=== PATIENT | female | born 1950 | race African-American/Black ===

== ENCOUNTER → 2017-10-11 | Outpatient (CLI) | payer MEDICARE, OTHER ==
--- NOTE | 2017-10-11 11:28 | RADIOLOGY REPORT (SQ) ---
EXAM DESCRIPTION: U/S RETROPERITON (RENAL/AORTA) COMPLETED DATE/TIME: 10/11/2017 10:54 am REASON FOR STUDY: ABN KIDNEY FUNCTION STUDIES (R94.4) R94.4 ABNORMAL RESULTS OF KIDNEY FUNCTION ANIA DIES COMPARISON: None. TECHNIQUE: Dynamic and static grayscale images acquired of the kidneys and bladder and recorded on P ACS. Additional selected color Doppler and spectral images recorded. LIMITATIONS: None. FINDINGS: RIGHT KIDNEY: Normal size, 13.1 cm. Mild cortical thinning. Normal echogenicity. No kari d masses ; several cysts are present. The largest measures 2 cm. No hydronephrosis. No calcificatio ns. LEFT KIDNEY: Normal size, 10.7 cm. Mild cortical thinning. Normal echogenicity. No solid masses; s everal cysts are present. The largest measures 1.7 cm. No hydronephrosis. No calcifications. BLADDER: No masses. Ureteral jets were visualized. OTHER FINDINGS: No other significant finding. IMPRESSION: There is mild cortical thinning bilaterally. Several cysts are seen on each kidney. TECHNICAL DOCUMENTATION: JOB ID: [id number]- All Rights Reserved
== END ==
LOC: RAD 09:30
PROVIDERS: ATTEND Internal Medicine
DX: R94.4 Abnormal results of kidney function studies (principal)
CPT/HCPCS: 76770

== ENCOUNTER → 2018-01-10 | Outpatient (CLI) | payer MEDICARE, OTHER ==
--- NOTE | 2018-01-10 10:25 | WOMENS IMAGING REPORT ---
EXAM DESCRIPTION: 3D SCREENING MAMMO BILAT COMPLETED DATE/TIME: 01/10/2018 8:10 am REASON FOR STUDY: SCREENING MAMMO Z12.31 ENCNTR SCREEN MAMMOGRAM FOR MALIGNANT NEOPLASM OF MARLA COMPARISON: [id number] TECHNIQUE: Standard craniocaudal and mediolateral oblique views of each breast recorded using digita l acquisition and breast tomosynthesis. LIMITATIONS: None. FINDINGS: No masses, calcifications or architectural distortion. No areas of suspicion. Read with the assistance of CAD. .[facility] - R2 Cenova Version 1.3 .[facility] Imaging - R2 Cenova Version 1.3 .[facility] Imaging - R2 Cenova Version 2.4 .[facility] - R2 Cenova Version 2.4 .[facility] - R2 Post Manager Version 9.2 IMPRESSION: NORMAL MAMMOGRAM. BIRADS 1. BREAST DENSITY: b. There are scattered areas of fibroglandular density. BIRAD: 1 NEGATIVE RECOMMENDATION: ROUTINE SCREENING COMMENT: The patient has been notified of the results by letter per SA requirements. Additional no tification policies are in place for contacting patient with suspicious or incomplete findings. Quality ID #225: The [employer] recommends an annual screening mammogram for women aged 40 years or over. This facility utilizes a reminder system to ensure that all patients receive reminder letters, and/or direct phone calls for appointments. This includes reminders for routine scr eening mammograms, diagnostic mammograms, or other Breast Imaging Interventions when appropriate. Th is patient will be placed in the appropriate reminder system. The [employer] (ACR) has developed recommendations for screening MRI of the breast s in certain patient populations, to be used in conjunction with mammography. Breast MRI surveillanc e may be appropriate for women with more than 20% lifetime risk of developing breast cancer as deter mined by genetic testing, significant family history of the disease, or history of mantle radiation f or Hodgkins Disease. ACR Practice Guidelines 2008. DBT Technology DBT is a type of tomographic mammography. With conventional mammography, overlapping breast tissue ma y make lesions difficult to detect, even with good compression. DBT uses an x-ray tube that rotates a round the breast, taking images at different angles. These images are then combined to create thin sl ices of the breast that the radiologist can view as a 3D reconstruction. The [employer] unit can perform full-field digital mammograms (2D imaging); or DBT (3D imaging); or both, in a combination mode that quickly performs both the mammogram and the tomosynthesis scan while the breast is still compressed. PQRS 6045F: Fluoroscopic imaging is not utilized for breast tomosynthesis. TECHNICAL DOCUMENTATION: FINDING NUMBER: (1) ASSESSMENT: (1) JOB ID: [id number] [employer]- All Rights Reserved
== END ==
LOC: WI 07:54
PROVIDERS: ATTEND Internal Medicine
DX: Z12.31 Encounter for screening mammogram for malignant neoplasm of breast (principal)
CPT/HCPCS: 77063; 77067

== ENCOUNTER 2018-09-10 13:14 | Observation (INO) | payer MEDICARE, OTHER ==
[2018-09-10] MEDS ORDERED: NORMAL SALINE 1000 ML 1,000 ML IV PRN ×2 (18:57→21:45)
[2018-09-10 20:32] LABS: CREATINE KINASE MB 0.71 ng/mL (<4.55)
[2018-09-10 20:40] LABS: TROPONIN I < 0.012 ng/mL
[2018-09-10 22:55] LABS: INTERNATIONAL RATION (INR) 0.99; PROTHROMBIN TIME 13.6 SEC (11.4-15.4)
[2018-09-10 22:56] LABS: PARTIAL THROMBOPLASTIN TIME 36.5 SEC (23.5-35.8)
[2018-09-10 23:11] LABS: ALANINE AMINOTRANSFERASE 21 U/L (9-52); ALBUMIN 3.6 g/dL (3.5-5.0); ALKALINE PHOSPHATASE 51 U/L (38-126); AMYLASE 80 U/L (30-110); ASPARTATE AMINO TRANSFERASE 12 U/L (14-36); BILIRUBIN,DIRECT 0.1 mg/dL (0.0-0.4); BILIRUBIN,TOTAL 0.3 mg/dL (0.2-1.3); LIPASE 159.3 U/L (23-300); PHOSPHORUS 3.3 mg/dL (2.5-4.5); TOTAL PROTEIN 6.3 g/dL (6.3-8.2)
[2018-09-10 23:33] LABS: TROPONIN I < 0.012 ng/mL
[2018-09-11 00:18] LABS: FREE T4 (FREE THYROXINE) 1.13 ng/dL (0.78-2.19)
[2018-09-11 00:31] LABS: THYROID STIMULATING HORMONE 0.87 uIU/mL (0.47-4.68)
[2018-09-11 01:10] LABS: APPEARANCE,URINE CLEAR; BILIRUBIN,URINE NEGATIVE (NEGATIVE); COLOR,URINE COLORLESS; GLUCOSE, URINE NEGATIVE (NEGATIVE); KETONES,URINE NEGATIVE (NEGATIVE); LEUKOCYTE ESTERASE,URINE SMALL (NEGATIVE); NITRITE,URINE NEGATIVE (NEGATIVE); PROTEIN,URINE NEGATIVE (NEGATIVE); URINE SPECIFIC GRAVITY 1.005; UROBILINOGEN,URINE NEGATIVE mg/dL (<2.0)
[2018-09-11 04:44] LABS: ABSOLUTE BASOPHILS # (AUTO) 0.1 10^3/uL (0.0-0.2); ABSOLUTE EOSINOPHILS # (AUTO) 0.4 10^3/uL (0.0-0.6); ABSOLUTE LYMPHOCYTES (AUTO) 2.4 10^3/uL (0.5-4.7); ABSOLUTE MONOCYTES (AUTO) 0.7 10^3/uL (0.1-1.4); ABSOLUTE NEUT (AUTO) 5.6 10^3/uL (1.7-8.2); BASOPHILS % (AUTO) 0.5 % (0-2); EOSINOPHILS % (AUTO) 4.7 % (0-6); HEMATOCRIT 30.3 % (36.0-47.0); HEMOGLOBIN 10.1 g/dL (12.0-15.5); MEAN CORPUSCULAR HEMOGLOBIN 29.4 pg (27.0-33.4); MEAN CORPUSCULAR HGB CONC 33.3 g/dL (32.0-36.0); MEAN CORPUSCULAR VOLUME 89 fl (80-97); PLATELET COUNT 347 10^3/uL (150-450); RED BLOOD COUNT 3.42 10^6/uL (3.72-5.28); SEGMENTED NEUTROPHILS % (AUTO) 60.8 % (42-78); TOTAL CELLS COUNTED % (AUTO) 100 %; WHITE BLOOD COUNT 9.3 10^3/uL (4.0-10.5)
[2018-09-11 05:05] LABS: ANION GAP 9 (5-19); BLOOD UREA NITROGEN 14 mg/dL (7-20); CALCIUM 10.4 mg/dL (8.4-10.2); CARBON DIOXIDE 24 mmol/L (22-30); CHLORIDE 107 mmol/L (98-107); CHOLESTEROL 109.71 mg/dL (0-200); CREATINE KINASE 44 U/L (30-135); GLUCOSE 88 mg/dL (75-110); POTASSIUM 3.7 mmol/L (3.6-5.0); SODIUM 139.7 mmol/L (137-145); TRIGLYCERIDES 73 mg/dL (<150)
[2018-09-11 05:16] LABS: CREATINE KINASE MB 0.46 ng/mL (<4.55); DIRECT LDL 35 mg/dL (<100)
[2018-09-11 05:21] LABS: TROPONIN I < 0.012 ng/mL
--- NOTE | 2018-09-11 07:59 | EKG REPORT ---
SEVERITY:- BORDERLINE ECG - SINUS RHYTHM BORDERLINE LEFT AXIS DEVIATION POOR R WAVE PROGRESSION ANTERIOR PRECORDIAL LEADS NO QT PROLONGATION : Confirmed by: Janes Schaefer MD 11-Sep-2018 07:58:17
[2018-09-11] MEDS ORDERED: ENOXAPARIN SODIUM INJ 40 MG/0.4 ML DISP.SYRIN SUBCUT SCH (10:00)
[2018-09-11 12:31] LABS: CREATINE KINASE MB 0.46 ng/mL (<4.55)
[2018-09-11 12:35] LABS: TROPONIN I < 0.012 ng/mL
--- NOTE | 2018-09-11 13:28 | RADIOLOGY REPORT (SQ) ---
EXAM DESCRIPTION: CAROTID DOPPLER COMPLETED DATE/TIME: 09/11/2018 12:05 pm REASON FOR STUDY: syncope COMPARISON: 01/28/2016 TECHNIQUE: Grayscale ultrasound, Doppler velocity and spectra, and color Doppler images acquired of the extra-cranial carotid and vertebral arteries. Images stored on PACS. LIMITATIONS: None. FINDINGS: RIGHT CAROTID CCA Velocities: Within normal limits. ICA Velocities Peak systolic 0.94 m/s. End diastolic 0.30 m/s. Proximal ICA/CCA peak systolic ratio 1.5. Spectra normal. No significant plaque. LEFT CAROTID CCA Velocities: Within normal limits. ICA Velocities Peak systolic 1.07 m/s. End diastolic 0.37 m/s. Proximal ICA/CCA peak systolic ratio 1.8. Spectra normal. No significant plaque. VERTEBRAL ARTERIES: Antegrade flow. Normal waveforms. SUBCLAVIAN ARTERIES: No finding. OTHER: No other significant finding. IMPRESSION: NO HEMODYNAMICALLY SIGNIFICANT STENOSIS. COMMENT: Quality ID #[id number]: Velocity criteria are extrapolated from the diameter data as defined by t he Society of Radiologists in Ultrasound Consensus Conference. Radiology 2003: 229; 340-346. TECHNICAL DOCUMENTATION: JOB ID: [id number] [employer]- All Rights Reserved Reading location - IP/workstation name: [email or web address]
[2018-09-11 16:31] VITALS: BP 141/58
--- NOTE | 2018-09-11 18:39 | XCELERA REPORT ---
[address] [address] Transthoracic Echocardiogram Report Name: DEV DAVIES Age: 67 yrs Gender: Female : 1950 Patient Status: Inpatient Patient Location: [address] [place], [place] [address] Study Date: 09/11/2018 10:26 AM Height: 65 in Weight: 208 lb BSA: 2.0 m2 Procedure: A two-dimensional transthoracic echocardiogram with color flow and Doppler was performed. Study Quality: Good. Reason For Study: syncope History: SYNCOPE. Ordering Physician: JANELLE MACK Performed By: Barbara Monson Interpretation Summary The left ventricle is normal in size. There is normal left ventricular wall thickness. LV EF is > than 65% Left ventricular systolic function is normal. Doppler measurements suggest normal left ventricular diastolic function The left ventricular wall motion is normal. There is no thrombus. There is no ventricular septal defect visualized. The right ventricle is normal in size and function. The right ventricular systolic function is normal. The right atrium is normal. The left atrial size is normal. The interatrial septum is intact with no evidence for an atrial septal defect. There is mild mitral annular calcification. There is no evidence of mitral valve prolapse. There is no vegetation seen on the mitral valve. There is no mitral valve stenosis. There is no mitral regurgitation noted. There is no aortic valvular vegetation. There is no aortic valve stenosis There is no LVOT obstruction. No aortic regurgitation is present. There is no tricuspid stenosis. There is a trace amount of tricuspid regurgitation Unable to calculate RVSP due to lack of TR jet. There is no pulmonic valvular stenosis. There is no pulmonic valvular regurgitation. The aortic root is normal size. The inferior vena cava appeared normal and decreased > 50% with respiration (RAP 5-10 mmHg) There is no pericardial effusion. MMode/2D Measurements & Calculations RVDd: 2.9 cm LVIDd: 5.2 cm FS: 40.8 % Ao root diam: 2.7 cm IVSd: 0.90 cm LVIDs: 3.1 cm EDV(Teich): 131.0 ml Ao root area: 5.8 cm2 LVPWd: 0.90 cm ESV(Teich): 37.8 ml LA dimension: 3.6 cm EF(Teich): 71.1 % Doppler Measurements & Calculations MV E max blanco: MV P1/2t max blanco: Ao V2 max: LV V1 max P.4 cm/sec 85.9 cm/sec 166.8 cm/sec 4.4 mmHg MV A max blanco: MV P1/2t: 56.7 msec Ao max PG: LV V1 max: 80.0 cm/sec MVA(P1/2t): 3.9 cm2 11.1 mmHg 104.6 cm/sec MV E/A: 1.1 MV dec slope: 443.9 cm/sec2 MV dec time: 0.20 sec PA V2 max: MV P1/2t-pr_phl: 92.3 cm/sec 56.7 msec PA max P.4 mmHg Left Ventricle The left ventricle is normal in size. There is normal left ventricular wall thickness. LV EF is > than 65%. Left ventricular systolic function is normal. Doppler measurements suggest normal left ventricular diastolic function. The left ventricular wall motion is normal. There is no thrombus. There is no ventricular septal defect visualized. Right Ventricle The right ventricle is normal in size and function. The right ventricular systolic function is normal. Atria The right atrium is normal. The left atrial size is normal. The interatrial septum is intact with no evidence for an atrial septal defect. Mitral Valve There is mild mitral annular calcification. There is no evidence of mitral valve prolapse. There is no vegetation seen on the mitral valve. There is no mitral valve stenosis. There is no mitral regurgitation noted. Aortic Valve There is no aortic valvular vegetation. There is no aortic valve stenosis. There is no LVOT obstruction. No aortic regurgitation is present. Tricuspid Valve There is no tricuspid stenosis. There is a trace amount of tricuspid regurgitation. Unable to calculate RVSP due to lack of TR jet. Pulmonic Valve There is no pulmonic valvular stenosis. There is no pulmonic valvular regurgitation. Great Vessels The aortic root is normal size. The inferior vena cava appeared normal and decreased > 50% with respiration (RAP 5-10 mmHg). Effusions There is no pericardial effusion. : JANELLE MACK > Cecy Koch
[2018-09-11] MEDS ORDERED: (PENDING PHARMACY ID) (Liraglutide [Victoza 2-Pak] 1.8 MG) SQ SCH (19:00)
[2018-09-11] MEDS ORDERED: (PENDING PHARMACY ID) (Valsartan/Hydrochlorothiazide [Valsartan-Hctz 160-25 Mg Tab] 1 EACH PO SCH (19:00)
[2018-09-11] MEDS ORDERED: (PENDING PHARMACY ID) (Rosuvastatin Calcium [Crestor 20 Mg Tablet] 20 MG) PO SCH (19:00)
[2018-09-11] MEDS ORDERED: SITAGLIPTIN PHOSPHATE 50 MG TABLET PO SCH (19:30)
[2018-09-11] MEDS ORDERED: MAGNESIUM OXIDE 400 MG TABLET PO ONE (19:30)
[2018-09-11] MEDS ORDERED: HYDROCHLOROTHIAZIDE 25 MG TABLET PO SCH (19:30)
[2018-09-11] MEDS ORDERED: LISINOPRIL 10 MG TABLET PO SCH (19:30)
[2018-09-11] MEDS ORDERED: PIOGLITAZONE HCL 30 MG TABLET PO SCH (19:30)
[2018-09-11] MEDS ORDERED: VALSARTAN 160 MG TABLET PO SCH (19:30)
--- NOTE | 2018-09-11 20:08 | PDOC H&P ---
History of Present Illness Admission Date/PCP: 09/10/18 13:14 ASHWIN NAILS MD History of Present Illness: DEV DAVIES is a 67 year old female.She apparently fell in driveway and sustained injury to the left face, she denied any antecedent chest pain, dizziness, palpitation but she does not remember exactly how she fell because it was trauma, she was transferred by the ambulance to the [facility] trauma center. She was evaluated, CT head was done, it demonstrated no intracranial hemorrhage, C-spine was done there is no fracture or misalignment of the cervical spine there are mild degenerative changes of the spine most noticeable at C5-C6, C6-C7. There is a 2 cm hypoattenuation focus in the left thyroid gland., There was incidental finding of a 2 cm left thyroid gland nodule, she was transferred out from the [facility] to [facility] for further management. I saw her on the floor, she has no symptom, a 2D echo was done, the left ventricle was normal size, the ejection fraction was more than 65% there was no significant valvular heart disease. The carotid Doppler was normal. Past Medical History Cardiac Medical History: Reports: Hypertension Endocrine Medical History: Reports: Diabetes Mellitus Type 2 Past Surgical History Past Surgical History: Reports: Hysterectomy Social History Smoking Status: Never Smoker Frequency of Alcohol Use: None Hx Recreational Drug Use: No Drugs: None Hx Prescription Drug Abuse: No Family History Family History: Reviewed & Not Pertinent Parental Family History Reviewed: Yes Children Family History Reviewed: Yes Sibling(s) Family History Reviewed.: Yes Medication/Allergy Home Medications: Liraglutide [Victoza 2-Andrez] 1.8 mg SQ DAILY 09/10/18 Lisinopril [Prinivil 40 mg Tablet] 40 mg PO DAILY 09/10/18 Metformin HCl [Glucophage 500 mg Tablet] 500 mg PO QID 09/10/18 Pioglitazone HCl [Actos] 30 mg PO DAILY 09/10/18 Rosuvastatin Calcium [Crestor 20 mg Tablet] 20 mg PO DAILY 09/10/18 Sitagliptin Phosphate [Januvia] 100 mg PO DAILY 09/10/18 Valsartan/Hydrochlorothiazide [Valsartan-Hctz 160-25 mg Tab] 1 each PO DAILY Allergies/Adverse Reactions: No Known Allergies Allergy (Unverified 01/28/16 00:03) Review of Systems Constitutional: ABSENT: chills, fever(s), headache(s), weight gain, weight loss Eyes: ABSENT: visual disturbances Ears: ABSENT: hearing changes Cardiovascular: ABSENT: chest pain, dyspnea on exertion, edema, orthropnea, palpitations Respiratory: ABSENT: cough, hemoptysis Gastrointestinal: ABSENT: abdominal pain, constipation, diarrhea, hematemesis, hematochezia, nausea, vomiting Genitourinary: ABSENT: dysuria, hematuria Musculoskeletal: ABSENT: joint swelling Integumentary: ABSENT: rash, wounds Neurological: PRESENT: syncope Psychiatric: ABSENT: anxiety, depression, homidical ideation, suicidal ideation Endocrine: ABSENT: cold intolerance, heat intolerance, menstrual abnormalities, polydipsia, polyuria Hematologic/Lymphatic: ABSENT: easy bleeding, easy bruising, lymphadenopathy Physical Exam Vital Signs: Temp Pulse Resp BP Pulse Ox 98.3 F 84 14 141/58 H 97 09/11/18 19:00 09/11/18 19:00 09/11/18 19:00 09/11/18 19:00 09/11/18 19:00 Intake & Output 09/10/18 09/11/18 09/12/18 06:59 06:59 06:59 Intake Total 200 Balance 200 Weight 99.9 kg General appearance: PRESENT: no acute distress Head exam: PRESENT: atraumatic, normocephalic Eye exam: PRESENT: conjunctiva pink, EOMI, PERRLA Ear exam: PRESENT: normal external ear exam Mouth exam: PRESENT: moist, tongue midline Neck exam: PRESENT: full ROM Respiratory exam: PRESENT: clear to auscultation lilian Cardiovascular exam: PRESENT: RRR, +S1, +S2 Pulses: PRESENT: normal dorsalis pedis pul, +2 pedal pulses bilateral Vascular exam: PRESENT: normal capillary refill GI/Abdominal exam: PRESENT: normal bowel sounds, soft Rectal exam: PRESENT: deferred Neurological exam: PRESENT: alert, CN II-XII grossly intact Psychiatric exam: PRESENT: appropriate affect, normal mood Skin exam: PRESENT: dry, intact, warm Results Laboratory Results: 09/11/18 04:25 09/11/18 04:25 09/10/18 09/10/18 09/11/18 22:41 22:41 00:45 WBC RBC Hgb Hct MCV MCH MCHC RDW Plt Count Seg Neutrophils % Lymphocytes % Monocytes % Eosinophils % Basophils % Absolute Neutrophils Absolute Lymphocytes Absolute Monocytes Absolute Eosinophils Absolute Basophils Sodium Potassium Chloride Carbon Dioxide Anion Gap BUN Creatinine Est GFR ( Amer) Est GFR (Non-Af Amer) Glucose Calcium Phosphorus 3.3 Magnesium Total Bilirubin 0.3 AST 12 L ALT 21 Alkaline Phosphatase 51 Total Protein 6.3 Albumin 3.6 Triglycerides Cholesterol LDL Cholesterol Direct VLDL Cholesterol HDL Cholesterol Amylase 80 Lipase 159.3 TSH 0.87 Free T4 1.13 Urine Color COLORLESS Urine Appearance CLEAR Urine pH 6.0 Ur Specific [place] 1.005 Urine Protein NEGATIVE Urine Glucose (UA) NEGATIVE Urine Ketones NEGATIVE Urine Blood NEGATIVE Urine Nitrite NEGATIVE Ur Leukocyte Esterase SMALL H Urine WBC (Auto) 8 09/11/18 09/11/18 04:25 04:25 WBC 9.3 RBC 3.42 L Hgb 10.1 L Hct 30.3 L MCV 89 MCH 29.4 MCHC 33.3 RDW 15.0 H Plt Count 347 Seg Neutrophils % 60.8 Lymphocytes % 26.0 Monocytes % 8.0 Eosinophils % 4.7 Basophils % 0.5 Absolute Neutrophils 5.6 Absolute Lymphocytes 2.4 Absolute Monocytes 0.7 Absolute Eosinophils 0.4 Absolute Basophils 0.1 Sodium 139.7 Potassium 3.7 Chloride 107 Carbon Dioxide 24 Anion Gap 9 BUN 14 Creatinine 0.84 Est GFR ( Amer) > 60 Est GFR (Non-Af Amer) > 60 Glucose 88 Calcium 10.4 H Phosphorus Magnesium 1.5 L Total Bilirubin AST ALT Alkaline Phosphatase Total Protein Albumin Triglycerides 73 Cholesterol 109.71 LDL Cholesterol Direct 35 VLDL Cholesterol 15.0 HDL Cholesterol 49 Amylase Lipase TSH Free T4 Urine Color Urine Appearance Urine pH Ur Specific [place] Urine Protein Urine Glucose (UA) Urine Ketones Urine Blood Urine Nitrite Ur Leukocyte Esterase Urine WBC (Auto) 09/10/18 09/10/18 09/10/18 19:40 19:40 22:41 Creatine Kinase 51 50 CK-MB (CK-2) 0.71 Troponin I < 0.012 09/10/18 09/11/18 09/11/18 22:41 04:25 04:25 Creatine Kinase 44 CK-MB (CK-2) 0.60 0.46 Troponin I < 0.012 < 0.012 09/11/18 09/11/18 11:24 11:24 Creatine Kinase 50 CK-MB (CK-2) 0.46 Troponin I < 0.012 Impressions: Carotid Doppler Study 09/11/18 00:00 IMPRESSION: NO HEMODYNAMICALLY SIGNIFICANT STENOSIS. Assessment & Plan - Diagnosis (1) Syncope Qualifiers: Syncope type: unspecified Qualified Code(s): R55 - Syncope and collapse Is this a current diagnosis for this admission?: Yes Plan: She probably suffered syncope, she is stable at this point, she will be discharged home, she will need 30-day event monitor outpatient (2) Type 2 diabetes mellitus Qualifiers: Diabetes mellitus watermelon inspector insulin use: without snf use Diabetes mellitus complication status: with neurologic complications Diabetes mellitus complication detail: with polyneuropathy Qualified Code(s): E11.42 - Type 2 diabetes mellitus with diabetic polyneuropathy Is this a current diagnosis for this admission?: Yes
--- NOTE | 2018-09-11 20:14 | PDOC DISCHARGE SUMMARY ---
General - Admit/Disc Date/PCP Admission Date/Primary Care Provider: 09/10/18 13:14 ASHWIN NAILS MD Discharge Date: 09/11/18 - Discharge Diagnosis (1) Syncope Is this a current diagnosis for this admission?: Yes (2) Type 2 diabetes mellitus Is this a current diagnosis for this admission?: Yes - Additional Information Discharge Diet: Cardiac, Diabetic Discharge Activity: Activity As Tolerated Home Medications: RX: Liraglutide [Victoza 2-Andrez] 1.8 mg SQ DAILY 09/10/18 RX: Lisinopril [Prinivil 40 mg Tablet] 40 mg PO DAILY 09/10/18 RX: Metformin HCl [Glucophage 500 mg Tablet] 500 mg PO QID 09/10/18 RX: Pioglitazone HCl [Actos] 30 mg PO DAILY 09/10/18 RX: Rosuvastatin Calcium [Crestor 20 mg Tablet] 20 mg PO DAILY 09/10/18 RX: Sitagliptin Phosphate [Januvia] 100 mg PO DAILY 09/10/18 RX: Valsartan/Hydrochlorothiazide [Valsartan-Hctz 160-25 mg Tab] 1 each PO DAILY 09/10/18 History of Present Illness History of Present Illness: DEV DAVIES is a 67 year old female.She apparently fell in driveway and sustained injury to the left face, she denied any antecedent chest pain, dizziness, palpitation but she does not remember exactly how she fell because it was trauma, she was transferred by the ambulance to the [facility] trauma center. She was evaluated, CT head was done, it demonstrated no intracranial hemorrhage, C-spine was done there is no fracture or misalignment of the cervical spine there are mild degenerative changes of the spine most noticeable at C5-C6, C6-C7. There is a 2 cm hypoattenuation focus in the left thyroid gland., There was incidental finding of a 2 cm left thyroid gland nodule, she was transferred out from the [facility] to [facility] for further management. I saw her on the floor, she has no symptom, a 2D echo was done, the left ventricle was normal size, the ejection fraction was more than 65% there was no significant valvular heart disease. The carotid Doppler was normal. Hospital Course Hospital Course: Patient was admitted for observation, 2D echo was done, it was normal, the carotid Doppler was normal ,Cardiac enzymes negative for acute [place] Physical Exam Vital Signs: Temp Pulse Resp BP Pulse Ox 98.3 F 84 14 141/58 H 97 09/11/18 19:00 09/11/18 19:00 09/11/18 19:00 09/11/18 19:00 09/11/18 19:00 Intake & Output 09/10/18 09/11/18 09/12/18 06:59 06:59 06:59 Intake Total 200 Balance 200 Weight 99.9 kg General appearance: PRESENT: no acute distress Head exam: PRESENT: atraumatic, normocephalic Eye exam: PRESENT: conjunctiva pink, EOMI, PERRLA Ear exam: PRESENT: normal external ear exam Mouth exam: PRESENT: moist, tongue midline Neck exam: PRESENT: full ROM Respiratory exam: PRESENT: clear to auscultation lilian Cardiovascular exam: PRESENT: RRR, +S1, +S2 Vascular exam: PRESENT: normal capillary refill GI/Abdominal exam: PRESENT: normal bowel sounds, soft Rectal exam: PRESENT: deferred Neurological exam: PRESENT: alert, awake, oriented to person, oriented to place , oriented to time, oriented to situation, CN II-XII grossly intact Psychiatric exam: PRESENT: appropriate affect, normal mood Skin exam: PRESENT: dry, intact, warm Results Laboratory Results: 09/11/18 04:25 09/11/18 04:25 09/10/18 09/10/18 09/11/18 22:41 22:41 00:45 WBC RBC Hgb Hct MCV MCH MCHC RDW Plt Count Seg Neutrophils % Lymphocytes % Monocytes % Eosinophils % Basophils % Absolute Neutrophils Absolute Lymphocytes Absolute Monocytes Absolute Eosinophils Absolute Basophils Sodium Potassium Chloride Carbon Dioxide Anion Gap BUN Creatinine Est GFR ( Amer) Est GFR (Non-Af Amer) Glucose Calcium Phosphorus 3.3 Magnesium Total Bilirubin 0.3 AST 12 L ALT 21 Alkaline Phosphatase 51 Total Protein 6.3 Albumin 3.6 Triglycerides Cholesterol LDL Cholesterol Direct VLDL Cholesterol HDL Cholesterol Amylase 80 Lipase 159.3 TSH 0.87 Free T4 1.13 Urine Color COLORLESS Urine Appearance CLEAR Urine pH 6.0 Ur Specific [place] 1.005 Urine Protein NEGATIVE Urine Glucose (UA) NEGATIVE Urine Ketones NEGATIVE Urine Blood NEGATIVE Urine Nitrite NEGATIVE Ur Leukocyte Esterase SMALL H Urine WBC (Auto) 8 09/11/18 09/11/18 04:25 04:25 WBC 9.3 RBC 3.42 L Hgb 10.1 L Hct 30.3 L MCV 89 MCH 29.4 MCHC 33.3 RDW 15.0 H Plt Count 347 Seg Neutrophils % 60.8 Lymphocytes % 26.0 Monocytes % 8.0 Eosinophils % 4.7 Basophils % 0.5 Absolute Neutrophils 5.6 Absolute Lymphocytes 2.4 Absolute Monocytes 0.7 Absolute Eosinophils 0.4 Absolute Basophils 0.1 Sodium 139.7 Potassium 3.7 Chloride 107 Carbon Dioxide 24 Anion Gap 9 BUN 14 Creatinine 0.84 Est GFR ( Amer) > 60 Est GFR (Non-Af Amer) > 60 Glucose 88 Calcium 10.4 H Phosphorus Magnesium 1.5 L Total Bilirubin AST ALT Alkaline Phosphatase Total Protein Albumin Triglycerides 73 Cholesterol 109.71 LDL Cholesterol Direct 35 VLDL Cholesterol 15.0 HDL Cholesterol 49 Amylase Lipase TSH Free T4 Urine Color Urine Appearance Urine pH Ur Specific [place] Urine Protein Urine Glucose (UA) Urine Ketones Urine Blood Urine Nitrite Ur Leukocyte Esterase Urine WBC (Auto) 09/10/18 09/10/18 09/10/18 19:40 19:40 22:41 Creatine Kinase 51 50 CK-MB (CK-2) 0.71 Troponin I < 0.012 09/10/18 09/11/18 09/11/18 22:41 04:25 04:25 Creatine Kinase 44 CK-MB (CK-2) 0.60 0.46 Troponin I < 0.012 < 0.012 09/11/18 09/11/18 11:24 11:24 Creatine Kinase 50 CK-MB (CK-2) 0.46 Troponin I < 0.012 Impressions: Carotid Doppler Study 09/11/18 00:00 IMPRESSION: NO HEMODYNAMICALLY SIGNIFICANT STENOSIS. Qualifiers - * PATIENT BEING DISCHARGED WITH ANY OF THE FOLLOWING DIAGNOSIS: No
[2018-09-11] MEDS ORDERED: ATORVASTATIN CALCIUM 40 MG TABLET PO SCH (22:00)
[2018-09-11] MEDS ORDERED: METFORMIN HCL 500 MG TABLET PO SCH (22:00)
== END 2018-09-11 19:55 | disposition home or self-care (01) ==
LOC: 4N 13:14 → INTOOBSV 13:14
PROVIDERS: ADMIT Internal Medicine; ATTEND Internal Medicine
DX: R55 Syncope and collapse (principal); E11.42 Type 2 diabetes mellitus with diabetic polyneuropathy; E04.1 Nontoxic single thyroid nodule; I10 Essential (primary) hypertension; Z79.899 Other long term (current) drug therapy; Z79.84 Long term (current) use of oral hypoglycemic drugs; S09.93XA Unspecified injury of face, initial encounter; W19.XXXA Unspecified fall, initial encounter; Y92.89 Other specified places as the place of occurrence of the external cause; Z23 Encounter for immunization
CPT/HCPCS: 36415 ×2; 84439; 82553 ×2; 82962 ×2; 82150; 82550 ×2; 83690; 83735; 84100; 84443; 85025; 85610; 85730; 80076; 80048; 81001; 84484 ×2; 83036; 80061; 93306; 93880; 90686; 93005; 93010; G0378 ×2; G0008; J7030; 90471

== ENCOUNTER → 2018-12-28 | Outpatient (CLI) | payer MEDICARE, OTHER ==
--- NOTE | 2018-12-28 10:16 | RADIOLOGY REPORT (SQ) ---
EXAM DESCRIPTION: U/S THYROID/SFT TISS HD NECK COMPLETED DATE/TIME: 12/28/2018 10:02 am REASON FOR STUDY: GOITER (E04.9) E04.9 NONTOXIC GOITER, UNSPECIFIED COMPARISON: None. TECHNIQUE: Dynamic and static pinedo-scale images acquired of the thyroid gland. Selected additional c olor/power Doppler images recorded. All images stored to PACS. LIMITATIONS: None. FINDINGS: RIGHT LOBE: Normal size. There is heterogeneous echotexture. There is a simple 6 x 8 x 4 mm cyst. LEFT LOBE: Normal size. Heterogeneous echotexture. There is a 2.1 x 2.1 x 1.6 cm solid nodule. The re is a 1.1 x 1.0 x 0.7 cm cyst. ISTHMUS: Normal size. Heterogeneous echotexture. No cystic or solid masses. OTHER: No other significant finding. IMPRESSION: 1. Heterogeneous echotexture throughout the thyroid gland. 2. 2.1 x 2.1 x 1.6 cm solid nodule in the left lobe of the thyroid gland. FNA is recommended. COMMENT: RECOMMENDATIONS FOR THYROID NODULES 1 CM OR LARGER Solitary nodules: Microcalcifications - FNA if 1 cm or greater. Solid or coarse calcification - FNA if 1.5 cm or greater. Mixed Solid/Cystic or Cystic with Mural Nodule - FNA if 2 cm or greater. None of the above but substantial growth since previous - FNA. Cystic with none of the above features and no significant growth - no FNA. Multiple nodules: Use above criteria for selection of nodules to FNA/biopsy. Biopsy probably not necessary in enlarged gland with multiple nodules of similar appearance. Abnormal lymph nodes - FNA/biopsy. Reference: Management of Thyroid Nodules Detected at [place]: Society of Radiologists in Ultrasound Consensus Stateme nt. Radiology 2005; 237:794-800 TECHNICAL DOCUMENTATION: JOB ID: [id number] [employer]- All Rights Reserved Reading location - IP/workstation name: [email or web address]
== END ==
LOC: RAD 09:06
PROVIDERS: ATTEND Internal Medicine
DX: E04.9 Nontoxic goiter, unspecified (principal)
CPT/HCPCS: 76536

== ENCOUNTER → 2019-01-04 | Outpatient (CLI) | payer MEDICARE, OTHER ==
[2019-01-04 11:48] LABS: FREE T3 3.37 pg/mL (2.77-5.27); FREE T4 (FREE THYROXINE) 1.31 ng/dL (0.78-2.19)
[2019-01-04 12:01] LABS: THYROID STIMULATING HORMONE 0.8 uIU/mL (0.47-4.68)
[2019-01-04 15:31] LABS: THYROGLOBULIN AB < 0.9 IU/mL (<4.0)
== END ==
LOC: OD 09:36
PROVIDERS: ATTEND Surgery
DX: E04.1 Nontoxic single thyroid nodule (principal)
CPT/HCPCS: 36415; 84439; 84443; 84481; 86376; 86800

== ENCOUNTER 2019-03-28 13:55 | Outpatient (CLI) | payer MEDICARE, OTHER ==
[~2019-03-28 13:55] MED LIST: FERRIC CARBOXYMALTOSE 750 MG in NORMAL SALINE 250 ML IV PRN
[2019-03-28 14:27] VITALS: BP 151/63
== END 2019-03-28 15:44 | disposition home or self-care (01) ==
LOC: II 13:55 → 5TH 13:57 → II 15:44
PROVIDERS: ATTEND Internal Medicine
DX: D50.9 Iron deficiency anemia, unspecified (principal); K90.0 Celiac disease
CPT/HCPCS: 96367; J7050; J1439

== ENCOUNTER 2019-04-04 13:12 | Outpatient (CLI) | payer MEDICARE, OTHER ==
[2019-04-04] MEDS ORDERED: FERRIC CARBOXYMALTOSE 750 MG in NORMAL SALINE 250 ML IV PRN (13:25)
[2019-04-04 13:28] VITALS: BP 117/51
== END 2019-04-04 14:51 | disposition home or self-care (01) ==
LOC: 5TH 13:12 → II 13:12
PROVIDERS: ATTEND Internal Medicine
DX: D50.9 Iron deficiency anemia, unspecified (principal); K59.00 Constipation, unspecified
CPT/HCPCS: 96367; J7050; J1439

== ENCOUNTER 2019-08-27 07:21 | Day surgery (SDC) | payer MEDICARE, OTHER ==
[~2019-08-27 07:21] MED LIST changes: +BUPIVACAINE HCL 0.75% INJ/PF (7.5 MG/1 ML) 10 ML SDV OS PRN; +FENTANYL CITRATE INJ/PF 100 MCG/2 ML AMPUL ONE; -FERRIC CARBOXYMALTOSE 750 MG in NORMAL SALINE 250 ML IV PRN; +KETOROLAC TROMETHAMINE 0.45% 4 DROP/0.4 ML DROPERETTE OS PRN; +LIDOCAINE 4% INJ/PF (40 MG/ML) 5 ML AMPUL OS PRN; +MIDAZOLAM 2 MG/2 ML INJ ONE; +ONDANSETRON HCL INJ/PF 4 MG/2 ML SDV ONE
[2019-08-27] MEDS: CYCLOPENTOLATE 0.2%/PHENYLEPHRINE 1% OPH SOLN 2 ML OS PRN ×3 (07:52→08:12)
[2019-08-27] MEDS: TROPICAMIDE 1% OPH SOLN 15 ML OS PRN ×3 (07:52→08:12)
[2019-08-27] MEDS: TETRACAINE HCL 0.5% OPH SOLN 4 ML OS PRN ×3 (07:52→08:22)
[2019-08-27] MEDS: BESIFLOXACIN HCL 0.6% OPH SUSP 5 ML BOTTLE OS PRN ×4 (07:52→08:45)
[2019-08-27] MEDS: CHONDR SU A NA/HYALUR INTRAOC KIT (SURGICARE) ONE ×2 (08:33)
[2019-08-27] MEDS: LIDOCAINE 1% INJ-PF (10 MG/ML) 30 ML SDV ONE ×2 (08:33)
[2019-08-27] MEDS: EPINEPHRINE INJ/PF 1 MG/1 ML AMPULE ONE ×2 (08:33)
[2019-08-27] MEDS: DORZOLAMIDE HCL 2%/TIMOLOL MALEAT 0.5% OPH SOLN 10 ML OS PRN ×2 (08:45)
[2019-08-27] MEDS ORDERED: MIDAZOLAM 2 MG/2 ML INJ ONE (09:00)
--- NOTE | 2019-08-27 12:44 | Operative Report ---
Operative Report-[facility] Operative Report: DATE OF SURGERY: 08/27/2019 PREOPERATIVE DIAGNOSIS: CATARACT, LEFT EYE. POSTOPERATIVE DIAGNOSIS: CATARACT, LEFT EYE. PROCEDURE PERFORMED: PHACOEMULSIFICATION WITH POSTERIOR CHAMBER INTRAOCULAR LENS, LEFT EYE. Intraocular Lens Model : ZCB00 22.5 Total Phaco Time: 2.93 CDE SURGEON: TRISH SILVA MD ANESTHESIA: TOPICAL WITH MAC. INDICATIONS FOR SURGERY: Difficultly driving at night PROCEDURE: The patient was brought to the Operating Room and placed on the operative table. Following tetracaine drops, topical anesthesia was administered. This consisted of instrument wipe pledgets soaked in a solution of 4% Xylocaine mixed with 0.75% Marcaine in a 1:2 ratio. A 2 x 1 cm pledget was placed in the superior fornix. A 1 x 1 cm pledget was placed in the inferior fornix. The eye was patched shut for 5 minutes. The patch was removed. The eye was sterilely prepped and draped in the usual manner. Lid speculum was placed in the eye. The pledgets were removed. 4-0 black silk sutures were placed around the superior and the inferior rectus muscles to be used as traction. A conjunctival peritomy was made at the 10 o'clock position. Hemostasis was obtained with bipolar cautery. A posterior limbal groove was created using a crescent knife and dissected anteriorly towards the cornea. A sharp point blade was used to create a paracentesis site at the 2 o'clock position. 0.2 cc non preserved Lidocaine was injected into the anterior chamber. A 2.4 mm keratome was used to enter the anterior chamber through the groove. Viscoelastic was injected into the anterior chamber. An anterior capsulotomy was performed using Utrata forceps in a capsulorrhexis fashion. Hydrodissection and hydrodelineation were performed. Phacoemulsification was performed in [id number] technique. Following this, the I/A unit was used to remove residual cortex. Viscoelastic was injected into the capsular bag. The Intraocular lens was placed in the capsular bag. The I/A unit was used to remove residual viscoelastic. The wound was seen to be watertight under high and low pressure, and no sutures were placed. The intraocular lens was well centered. The pressure was adjusted in the eye to normal pressure. The 4-0 black silk sutures and lid speculum were removed. The eye was shielded after Besivance and Cosopt drops were placed. The patient tolerated the procedure well and was sent to the Recovery Room in good condition.
== END 2019-08-27 09:29 | disposition home or self-care (01) ==
LOC: SC 07:21
PROVIDERS: ATTEND Ophthalmology
DX: H25.813 Combined forms of age-related cataract, bilateral (principal); H04.123 Dry eye syndrome of bilateral lacrimal glands; H35.373 Puckering of macula, bilateral; E11.3593 Type 2 diabetes mellitus with proliferative diabetic retinopathy without macular edema, bilateral; I10 Essential (primary) hypertension; E78.00 Pure hypercholesterolemia, unspecified; Z79.84 Long term (current) use of oral hypoglycemic drugs; Z79.899 Other long term (current) drug therapy
CPT/HCPCS: 66984; 82962; 00142; V2632; J2250; J3490 ×5; A9270; J0171; J3010; J2405; 142

== ENCOUNTER → 2019-09-11 | Outpatient (CLI) | payer MEDICARE, OTHER ==
--- NOTE | 2019-09-11 13:50 | RADIOLOGY REPORT (SQ) ---
EXAM DESCRIPTION: KNEE LEFT 2 VIEWS COMPLETED DATE/TIME: 09/11/2019 10:29 am REASON FOR STUDY: PAIN IN LEFT KNEE M25.562 PAIN IN LEFT KNEE COMPARISON: None. NUMBER OF VIEWS: Two views. TECHNIQUE: AP and lateral radiographic images acquired of the left knee. LIMITATIONS: None. FINDINGS: MINERALIZATION: Normal. BONES: No acute fracture or dislocation. Benign-appearing non expansile lucent lesion in the distal tibia with thin sclerotic margins. Joint space narrowing with small osteophytes. JOINT: No effusion. No chondrocalcinosis. OTHER: No other significant finding. IMPRESSION: CHRONIC DEGENERATIVE CHANGES. NO APPARENT ACUTE FINDINGS. 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 TECHNICAL DOCUMENTATION: JOB ID: [id number] [employer]- All Rights Reserved Reading location - IP/workstation name: [email or web address]
== END ==
LOC: OD 10:14
PROVIDERS: ATTEND Internal Medicine
DX: M25.562 Pain in left knee (principal)

== ENCOUNTER 2019-09-24 06:22 | Day surgery (SDC) | payer MEDICARE, OTHER ==
[~2019-09-24 06:22] MED LIST changes: +BUPIVACAINE HCL 0.75% INJ/PF (7.5 MG/1 ML) 10 ML SDV OD PRN; -BUPIVACAINE HCL 0.75% INJ/PF (7.5 MG/1 ML) 10 ML SDV OS PRN; -FENTANYL CITRATE INJ/PF 100 MCG/2 ML AMPUL ONE; +KETOROLAC TROMETHAMINE 0.45% 4 DROP/0.4 ML DROPERETTE OD PRN; -KETOROLAC TROMETHAMINE 0.45% 4 DROP/0.4 ML DROPERETTE OS PRN; +LIDOCAINE 4% INJ/PF (40 MG/ML) 5 ML AMPUL OD PRN; -LIDOCAINE 4% INJ/PF (40 MG/ML) 5 ML AMPUL OS PRN; -MIDAZOLAM 2 MG/2 ML INJ ONE; -ONDANSETRON HCL INJ/PF 4 MG/2 ML SDV ONE
[2019-09-24] MEDS: TROPICAMIDE 1% OPH SOLN 15 ML OD PRN ×3 (06:55→07:15)
[2019-09-24] MEDS: CYCLOPENTOLATE 0.2%/PHENYLEPHRINE 1% OPH SOLN 2 ML OD PRN ×3 (06:55→07:15)
[2019-09-24] MEDS: TETRACAINE HCL 0.5% OPH SOLN 4 ML OD PRN ×2 (06:55→07:20)
[2019-09-24] MEDS: BESIFLOXACIN HCL 0.6% OPH SUSP 5 ML BOTTLE OD PRN ×4 (06:55→07:56)
[2019-09-24] MEDS ORDERED: MIDAZOLAM 2 MG/2 ML INJ ONE (06:58)
[2019-09-24] MEDS ORDERED: FENTANYL CITRATE INJ/PF 100 MCG/2 ML AMPUL ONE (06:59)
[2019-09-24] MEDS: LIDOCAINE 1% INJ-PF (10 MG/ML) 30 ML SDV ONE ×2 (07:44)
[2019-09-24] MEDS: EPINEPHRINE INJ/PF 1 MG/1 ML AMPULE ONE ×2 (07:44)
[2019-09-24] MEDS: CHONDR SU A NA/HYALUR INTRAOC KIT (SURGICARE) ONE ×2 (07:44)
[2019-09-24] MEDS: DORZOLAMIDE HCL 2%/TIMOLOL MALEAT 0.5% OPH SOLN 10 ML OD PRN ×2 (07:56)
--- NOTE | 2019-09-24 12:32 | Operative Report ---
Operative Report-[facility] Operative Report: DATE OF SURGERY: 09/24/2019 PREOPERATIVE DIAGNOSIS: CATARACT, RIGHT EYE. POSTOPERATIVE DIAGNOSIS: CATARACT, RIGHT EYE. PROCEDURE PERFORMED: PHACOEMULSIFICATION WITH POSTERIOR CHAMBER INTRAOCULAR LENS, RIGHT EYE. Intraocular Lens Model : MX60E 23.0 Total Phaco Time: 5.56 CDE SURGEON: TRISH SILVA MD ANESTHESIA: TOPICAL WITH MAC. INDICATIONS FOR SURGERY: Difficulty reading road signs and words on TV. PROCEDURE: The patient was brought to the Operating Room and placed on the operative table. Following tetracaine drops, topical anesthesia was administered. This consisted of instrument wipe pledgets soaked in a solution of 4% Xylocaine mixed with 0.75% Marcaine in a 1:2 ratio. A 2 x 1 cm pledget was placed in the superior fornix. A 1 x 1 cm pledget was placed in the inferior fornix. The eye was patched shut for 5 minutes. The patch was removed. The eye was sterilely prepped and draped in the usual manner. Lid speculum was placed in the eye. The pledgets were removed. 4-0 black silk sutures were placed around the superior and the inferior rectus muscles to be used as traction. A conjunctival peritomy was made at the 10 o'clock position. Hemostasis was obtained with bipolar cautery. A posterior limbal groove was created using a crescent knife and dissected anteriorly towards the cornea. A sharp point blade was used to create a paracentesis site at the 2 o'clock position. 0.2 cc non preserved Lidocaine was injected into the anterior chamber. A 2.4 mm keratome was used to enter the anterior chamber through the groove. Viscoelastic was injected into the anterior chamber. An anterior capsulotomy was performed using Utrata forceps in a capsulorrhexis fashion. Hydrodissection and hydrodelineation were performed. Phacoemulsification was performed in [id number] technique. Following this, the I/A unit was used to remove residual cortex. Viscoelastic was injected into the capsular bag. The Intraocular lens was placed in the capsular bag. The I/A unit was used to remove residual viscoelastic. The wound was seen to be watertight under high and low pressure, and no sutures were placed. The intraocular lens was well centered. The pressure was adjusted in the eye to normal pressure. The 4-0 black silk sutures and lid speculum were removed. The eye was shielded after Besivance and Cosopt drops were placed. The patient tolerated the procedure well and was sent to the Recovery Room in good condition.
== END 2019-09-24 08:35 | disposition home or self-care (01) ==
LOC: SC 06:22
PROVIDERS: ATTEND Ophthalmology
DX: H25.811 Combined forms of age-related cataract, right eye (principal); Z96.1 Presence of intraocular lens
CPT/HCPCS: 66984; 82962; J2250; J3490 ×5; A9270; J0171; J3010; 142; V2632

== ENCOUNTER → 2020-01-03 | Outpatient (CLI) | payer MEDICARE, OTHER ==
[2020-01-03 10:20] LABS: ABSOLUTE BASOPHILS # (AUTO) 0.1 10^3/uL (0.0-0.2); ABSOLUTE EOSINOPHILS # (AUTO) 0.3 10^3/uL (0.0-0.6); ABSOLUTE LYMPHOCYTES (AUTO) 2.5 10^3/uL (0.5-4.7); ABSOLUTE MONOCYTES (AUTO) 0.5 10^3/uL (0.1-1.4); ABSOLUTE NEUT (AUTO) 5.4 10^3/uL (1.7-8.2); BASOPHILS % (AUTO) 0.6 % (0-2); EOSINOPHILS % (AUTO) 3.1 % (0-6); HEMATOCRIT 34.1 % (36.0-47.0); HEMOGLOBIN 11.6 g/dL (12.0-15.5); LYMPHOCYTES % (AUTO) 28.7 % (13-45); MEAN CORPUSCULAR HEMOGLOBIN 31.1 pg (27.0-33.4); MEAN CORPUSCULAR HGB CONC 34.1 g/dL (32.0-36.0); MEAN CORPUSCULAR VOLUME 91 fl (80-97); MONOCYTES % (AUTO) 6.1 % (3-13); PLATELET COUNT 349 10^3/uL (150-450); RED BLOOD COUNT 3.73 10^6/uL (3.72-5.28); RED CELL DISTRIBUTION WIDTH 13.8 % (11.5-14.0); SEGMENTED NEUTROPHILS % (AUTO) 61.5 % (42-78); TOTAL CELLS COUNTED % (AUTO) 100 %; WHITE BLOOD COUNT 8.7 10^3/uL (4.0-10.5)
[2020-01-03 10:42] LABS: ALBUMIN 4.4 g/dL (3.5-5.0); ALKALINE PHOSPHATASE 62 U/L (38-126); ASPARTATE AMINO TRANSFERASE 15 U/L (14-36); BILIRUBIN,TOTAL 0.3 mg/dL (0.2-1.3)
[2020-01-04 16:43] LABS: TOXOPLASMA GONDII IGG AB <3.0 IU/mL (0.0-7.1)
== END ==
LOC: OD 09:07
PROVIDERS: ATTEND Ophthalmology
DX: H20.00 Unspecified acute and subacute iridocyclitis (principal); Z96.1 Presence of intraocular lens
CPT/HCPCS: 36415; 80076; 85025; 86480; 86592; 86777

== ENCOUNTER → 2020-07-15 | Outpatient (CLI) | payer MEDICARE, OTHER ==
[2020-07-15 12:34] LABS: FREE T3 3.08 pg/mL (2.77-5.27); FREE T4 (FREE THYROXINE) 1.3 ng/dL (0.78-2.19)
[2020-07-15 12:48] LABS: THYROID STIMULATING HORMONE 1.01 uIU/mL (0.47-4.68)
== END ==
LOC: OD 11:30
PROVIDERS: ATTEND Surgery
DX: E04.9 Nontoxic goiter, unspecified (principal)
CPT/HCPCS: 36415; 84439; 84443; 84481

== ENCOUNTER → 2020-09-24 | Outpatient (CLI) | payer MEDICARE, OTHER ==
--- NOTE | 2020-09-24 09:51 | WOMENS IMAGING REPORT ---
EXAM DESCRIPTION: 3D SCREENING MAMMO BILAT IMAGES COMPLETED DATE/TIME: 09/24/2020 7:30 am REASON FOR STUDY: Z12.31 ENCNTR SCREEN MAMMOGRAM FOR MALIGNANT NEOPLASM OF BREAST Z12.31 ENCNTR SCR EEN MAMMOGRAM FOR MALIGNANT NEOPLASM OF MARLA COMPARISON: Priors back to 2014 EXAM PARAMETERS: Views: Standard craniocaudal and mediolateral oblique views of each breast recorded using digital acquisition and breast tomosynthesis. Read with the assistance of CAD. .COUNTS INCLUDE 234 BEDS AT THE [facility] - [employer] Observer Version 9.2 LIMITATIONS: None. FINDINGS: No suspicious masses, suspicious calcifications or architectural distortion. No areas of c oncern. IMPRESSION: NEGATIVE MAMMOGRAM. BIRADS 1. BREAST DENSITY: b. There are scattered areas of fibroglandular density. BIRAD: ASSESSMENT: 1 NEGATIVE RECOMMENDATION: ROUTINE SCREENING COMMENT: The patient has been notified of the results by letter per MQSA requirements. Additional no tification policies are in place for contacting patient with suspicious or incomplete findings. Quality ID #[id number]: The [employer] recommends an annual screening mammogram for women aged 40 years or over. This facility utilizes a reminder system to ensure that all patients receive reminder letters, and/or direct phone calls for appointments. This includes reminders for routine scr eening mammograms, diagnostic mammograms, or other Breast Imaging Interventions when appropriate. Th is patient will be placed in the appropriate reminder system. TECHNICAL DOCUMENTATION: FINDING NUMBER: (1) ASSESSMENT: (1) JOB ID: [id number] 2010 [employer]- All Rights Reserved Reading location - IP/workstation name: [email or web address]
== END ==
LOC: RAD 07:04
PROVIDERS: ATTEND Internal Medicine
DX: Z12.31 Encounter for screening mammogram for malignant neoplasm of breast (principal)
CPT/HCPCS: 77063; 77067